=== PATIENT | male | born 1985 | race African-American/Black ===

== ENCOUNTER 2023-04-28 07:36 | Outpatient (CLI) | payer OTHER ==
--- NOTE | 2023-04-28 09:32 | MRI Report ---
PROCEDURE: LUMBAR SPINE WO INDICATIONS: LUMBAR RADICULOPATHY TECHNIQUE: Noncontrast sagittal T1 spin echo and T2 fast echo, sagittal STIR, axial T1 and T2 fast spin echo thr ough the lumbar spine. In cases with scoliosis, additional coronal T2 fast spin echo may be performe d. COMPARISON: 03/01/2022. FINDINGS: Image quality: Excellent. Alignment and Curvature: There is normal bony alignment. Bone Marrow: Marrow is of normal overall signal. No acute vertebral body compression fractures. Spinal Cord: Conus medullaris terminates at the L2-L3 level. Visualized cord demonstrates normal si gnal and size. Paraspinous Soft Tissues: No paravertebral masses. T12-L1: Mild facet hypertrophy. No canal stenosis or foraminal stenosis. L1-L2: Normal in appearance. L2-L3: Mild facet hypertrophy. No canal stenosis or foraminal stenosis. L3-L4: Mild facet hypertrophy. No canal stenosis or foraminal stenosis. L4-L5: Unchanged findings. Annulus tear. Minimal disc bulge. Mild facet hypertrophy. No canal steno sis. Mild bilateral foraminal stenosis. L5-S1: Unchanged findings. Annulus tear. Disc bulge. Facet hypertrophy. No canal stenosis or signif icant foraminal stenosis. IMPRESSION: 1. No significant interval change. 2. Multilevel mild underlying facet arthropathy. 3. No canal stenosis or significant foraminal stenosis. 4. At both L4-L5 and L5-S1 there are annulus tears plus disc bulges without canal stenosis. Reviewed by: Ramy Sanchez MD on 04/28/2023 9:31 AM PST Approved by: Ramy Sanchez MD on 04/28/2023 9:31 AM PST Station ID: [id number]
== END 2023-04-28 07:37 | disposition home or self-care (01) ==
LOC: DI 07:36
PROVIDERS: ATTEND General Practice
DX: M51.16 Intervertebral disc disorders with radiculopathy, lumbar region (principal); M47.26 Other spondylosis with radiculopathy, lumbar region; M47.27 Other spondylosis with radiculopathy, lumbosacral region; M51.17 Intervertebral disc disorders with radiculopathy, lumbosacral region; M51.06 Intervertebral disc disorders with myelopathy, lumbar region

== ENCOUNTER 2023-10-23 08:06 | Outpatient (CLI) | payer OTHER ==
--- NOTE | 2023-10-23 12:53 | MRI Report ---
PROCEDURE: Hand RT WO INDICATIONS: HAND PAIN TECHNIQUE: Noncontrast coronal T1 spin echo and T2 fast spin echo with fat saturation, axial proton density fast spin echo and T2 fast spin echo with fat saturation, sagittal T1 spin echo and STIR through the hand and fingers. COMPARISON: None. FINDINGS: Image quality: Excellent. Bones: The bones are normally aligned, without marrow contusions or fractures. No intra-osseous les ions. Interphalangeal joint(s): The accessory and proper collateral ligaments appear intact. The volar pl ate demonstrates normal morphology. The extensor central slips appear intact on sagittal images. Metacarpophalangeal joint(s): Significant soft tissue edema surrounding third MCP joint is seen. Low to moderate grade partial thickness tear involving ulnar collateral ligaments of the second and third MCP joints near their proximal insertion is seen.. The volar plates of second and third MCP joints a re intact.. The sagittal bands of the extensor bey appear normal. Extensor apparatus: The central slips insert normally on the middle phalangeal base. The conjoint a nd terminal tendons insert normally on the distal phalangeal bases. Thickened extensor tendons of sec ond and third MCP joints at the level of metacarpal head and neck region with surrounding edema is se en more notably in third digit. Flexor apparatus: The flexor digitorum superficialis and profundus t endons both appear intact. All annular and cruciform pulleys appear intact, without adjacent soft ti ssue edema. Soft tissues: Visualized muscles demonstrate normal bulk and internal signal. No intramuscular mass es identified. No ganglion cysts. IMPRESSION: 1. No marrow edema. No acute fracture or dislocation. 2. Tendinosis and low-grade partial-thickness involving extensor tendons of second and third digits a t the level of distal metacarpal shaft as well as metacarpal head and neck worse in the third digit. 3. Low to moderate grade partial thickness tear involving ulnar collateral ligaments of second and th ird MCP joints with surrounding soft tissue edema and swelling worse in third digit. 4. No full-thickness finger tendon or ligament rupture is seen. Reviewed by: Jayden Chandra MD on 10/23/2023 12:51 PM PDT Approved by: Jayden Chandra MD on 10/23/2023 12:51 PM PDT Station ID: [id number]
== END 2023-10-23 08:07 | disposition home or self-care (01) ==
LOC: DI 08:06
DX: M67.843 Other specified disorders of tendon, right hand (principal); S63.650A Sprain of metacarpophalangeal joint of right index finger, initial encounter; S63.652A Sprain of metacarpophalangeal joint of right middle finger, initial encounter